=== PATIENT | female | born 1995 | race Caucasian/White ===

== ENCOUNTER 2025-05-18 10:19 | Emergency (ER) | payer MEDICAID ==
[~2025-05-18] VITALS: Ht 165.1 cm; Wt 64.0 kg
[2025-05-18 10:22] VITALS: TEMP 36.7; O2SAT 99
[2025-05-18] MEDS: TETRACAINE 0.5% OPHTH DROPS 4ML BOTHEYE ONE (10:54)
[2025-05-18] MEDS: FLUORESCEIN SODIUM 1MG/STRIP BOTHEYE ONE (10:55)
[2025-05-18] MEDS: ACETAMINOPHEN 325MG TABLET PO ONE (10:55)
[2025-05-18] MEDS ORDERED: DIPH25CA83 MT (11:54)
[2025-05-18] MEDS: METOCLOPRAMIDE HCL 10MG TABLET PO ONE (12:02)
[2025-05-18] MEDS: KETOROLAC 30MG/ML VIAL IM ONE (12:02)
[2025-05-18 12:30] VITALS: BP 103/63; PULSE 71; RESP 12; O2SAT 99
== END 2025-05-18 12:36 | disposition home or self-care (01) ==
LOC: ER 10:19
DX: H57.11 Ocular pain, right eye (principal)
CPT/HCPCS: 99283; 81025; 96372; J1885; J8597